=== PATIENT | male | born 1990 | race African-American/Black ===

== ENCOUNTER 2018-12-30 18:00 | Emergency (ER) | payer SELFPAY ==
[~2018-12-30] VITALS: Ht 182.9 cm; Wt 148.2 kg
[2018-12-30 18:05] VITALS: Ht 182.9 cm; Wt 148.2 kg
--- NOTE | 2018-12-30 19:07 | ERD ---
ER Documentation Chief Complaint Chief Complaint Pt reports choking on juice and passing out about 1 hour ago HPI The patient is a 28-year-old male, presenting to the ER because of possible passing out after choking on the juice since he was laughing. He denies tongue bite, fecal/urinary incontinence, headache, dizziness, neck pain, chest pain, dyspnea, abdominal pain, vomiting, dizzy, diarrhea. He smokes and drinks and also smoked marijuana Past medical history: Obesity Past surgical history: Cholecystectomy ROS All systems reviewed and are negative except as per history of present illness. Medications Home Meds No Active Prescriptions or Reported Meds Allergies Allergies: Coded Allergies: No Known Allergy (Unverified , 12/30/18) Physical Exam Vitals Vital Signs Date Temp Pulse Resp B/P (MAP) Pulse Ox O2 O2 Flow FiO2 Time Delivery Rate 12/30/18 74 18 122/93 100 Room Air 22:34 (103) 12/30/18 98.2 84 20 115/84 98 Room Air 19:10 (94) 12/30/18 99.3 104 24 156/87 98 18:05 (110) Physical Exam Const: No acute distress. Head: Atraumatic. Eyes: Normal Conjunctiva. ENT: Normal External Ears, Nose and Mouth. Neck: Full range of motion. No meningismus. Resp: Clear to auscultation bilaterally. Cardio: Regular rate and rhythm. Abd: Soft, non distended, normal bowel sounds, non tender. Skin: No petechiae or rashes. Back: No midline or flank tenderness. Ext: No cyanosis, or edema. Neur: Awake and alert. No focal deficit Psych: Normal Mood and Affect. Result Diagram: 12/30/18192512/30/181925 Results 24 hrs Laboratory Tests Test 12/30/18 19:26 12/30/18 22:30 White Blood Count 6.8 10^3/ul Red Blood Count 5.76 10^6/ul Hemoglobin 15.0 g/dl Hematocrit 46.5 % Mean Corpuscular Volume 80.7 fl Mean Corpuscular Hemoglobin 26.0 pg Mean Corpuscular Hemoglobin Concent 32.3 g/dl Red Cell Distribution Width 13.5 % Platelet Count 319 10^3/UL Mean Platelet Volume 9.3 fl Immature Granulocytes % 0.700 % Neutrophils % 53.6 % Lymphocytes % 32.8 % Monocytes % 11.0 % Eosinophils % 0.7 % Basophils % 1.2 % Nucleated Red Blood Cells % 0.0 /100WBC Immature Granulocytes # 0.050 10^3/ul Neutrophils # 3.6 10^3/ul Lymphocytes # 2.2 10^3/ul Monocytes # 0.8 10^3/ul Eosinophils # 0.1 10^3/ul Basophils # 0.1 10^3/ul Nucleated Red Blood Cells # 0.0 10^3/ul Sodium Level 139 mmol/L Potassium Level 3.9 mmol/L Chloride Level 101 mmol/L Carbon Dioxide Level 29 mmol/L Anion Gap 9 Blood Urea Nitrogen 12 mg/dl Creatinine 1.11 mg/dl Est Glomerular Filtrat Rate mL/min > 60 mL/min Glucose Level 87 mg/dl Calcium Level 10.0 mg/dl Troponin I < 0.012 ng/ml Bedside Urine pH (LAB) 5.5 Bedside Urine Protein (LAB) 1+ Bedside Urine Glucose (UA) Negative Bedside Urine Ketones (LAB) Negative Bedside Urine Blood Negative Bedside Urine Nitrite (LAB) Negative Bedside Urine Leukocyte Esterase (L Negative Procedures/MDM [place] [address] Radiology Main Line: [phone] DIAGNOSTIC IMAGING REPORT Patient: AILYN EVANGELISTA : 1990 Age: 28 Sex: M [id number] DOS: 12/30/18 192 Ordering MD: COREY SELF MD Location: E/R Room/Bed: PROCEDURE: CT Brain without contrast. CLINICAL INDICATION: Syncope TECHNIQUE: A CT of the brain was performed on a multidetector CT scanner utilizing axial imaging from the skull base through the vertex without IV contrast. Multiplanar reformatted images were made. Images were reviewed on a PACS workstation. The CTDIvol is 39 mGy and the DLP is 634 mGycm. DICOM images are available. One or more of the following dose reduction techniques were utilized: 1.) Automated exposure control 2.) Adjustment of the mA +/- kV according to patient's size 3.) Use of iterative reconstruction technique. COMPARISON: None FINDINGS: There is no intracranial hemorrhage, mass effect, or midline shift. No extra- axial fluid collection is seen. The ventricles and sulci are normal in size and configuration. The density of the brain is normal, and the alonso white matter differentiation appears well-preserved. The visualized paranasal sinuses and osseous structures are grossly unremarkable. IMPRESSION: 1. No evidence of acute intracranial pathology. 2. The brain is normal in appearance. .Emil Gonsalez MD, MD Date Time Electronically viewed and signed by .Emil Gonsalez MD, MD on 12/30/2018 19:58 .A/ CC: COREY SELF MD [id number] [place] [address] Radiology Main Line: [phone] DIAGNOSTIC IMAGING REPORT Patient: AILYN EVANGELISTA : 1990 Age: 28 Sex: M MR #: [id number] DOS: 12/30/181919 Ordering MD: COREY SELF MD Location: E/R Room/Bed: PROCEDURE: Chest. CLINICAL INDICATION: Syncope. TECHNIQUE: Single frontal view of the chest was obtained. COMPARISON: None. FINDINGS: The cardiac silhouette is within normal limits. The aortic arch is unremarkable. There is no focal consolidation, vascular congestion or pleural effusion. There is no pneumothorax. IMPRESSION: No evidence for active cardiopulmonary disease. .Manas Lacy MD, MD Date Time Electronically viewed and signed by .Manas Lacy MD, MD on 12/30/2018 19:43 .T/ CC: COREY SELF MD [phone] EKG: Read by emergency physician Rate/Rhythm: Normal Sinus Rhythm 87 beats/min QRS, ST, T-waves: No ST elevation, no T inversion Impression: Normal EKG MEDICAL MAKING DECISION: The patient is a 28-year-old male, presenting with acute syncope, most likely vasovagal The differential diagnoses considered include but are not limited to arrhythmogenic right ventricular dysplasia, Brugada syndrome, left ventricular hypertrophy, pulmonary embolism, QT abnormality, [id number]. Departure Diagnosis: Primary Impression: Syncope Condition: Good Comments The patient's blood pressure was elevated (>120/80) but appears stable without evidence of hypertension emergency or urgency. The patient was counseled about the risks of hypertension and urged to pursue outpatient monitoring and therapy within a week with their primary care physician. I discussed the findings with the patient. I advised the patient to follow-up with the primary physician in about 1-2 days, sooner if needed and return if any concern. Disclaimer: Inadvertent spelling and grammatical errors are likely due to EHR/dictation software use and do not reflect on the overall quality of patient care. Also, please note that the electronic time recorded on this note does not necessarily reflect the actual time of the patient encounter. COREY SELF MD Dec 30, 2018 19:07
[2018-12-30 22:34] VITALS: BP 122/93; PULSE 74; RESP 18
== END 2018-12-30 22:41 | disposition home or self-care (01) ==
LOC: E/R 18:00
DX: R09.89 Other specified symptoms and signs involving the circulatory and respiratory systems (principal); R55 Syncope and collapse
CPT/HCPCS: 36415; 70450; 71045; 80048; 81003; 84484; 85025; 93005